=== PATIENT | male | born 1950 | race Caucasian/White ===

== ENCOUNTER 2016-12-29 08:34 | Day surgery (SDC) | payer OTHER ==
[2016-12-26 15:24] VITALS: BMI 30.7
[2016-12-29 09:04] VITALS: TEMP 97.4
[2016-12-29] MEDS ORDERED: LIDOCAINE 1%/EPI 1:100000 (20 ML MULTI DOSE VIAL) ONE (09:42)
[2016-12-29] MEDS ORDERED: TOBRAMYCIN/DEXAMETHASONE OPHTH. OINTMENT 1 TUBE ONE (09:42)
[2016-12-29] MEDS ORDERED: MIDAZOLAM HCL 2 MG/2 ML SINGLE DOSE VIAL ONE (09:56)
[2016-12-29] MEDS ORDERED: TETRACAINE 0.5% OPHTH SOLN 2 ML BOTTLE OS ONE (10:09)
[2016-12-29] MEDS ORDERED: LIDOCAINE 1%/EPI 1:100000 (50 ML MULTI DOSE VIAL) INF ONE (10:15)
[2016-12-29] MEDS ORDERED: NEO/POLYMYX B SULF/DEXAMETH OPHTHALMIC 5ML BOTTLE ONE (10:22)
[2016-12-29] MEDS ORDERED: NEO/POLYMYX B SULF/DEXAMETH OPHTHALMIC OINTMENT 3.5 GM ONE (10:23)
[2016-12-29 11:33] VITALS: PULSE 69
[2016-12-29 13:49] VITALS: BP 120/70
--- NOTE | 2016-12-30 08:41 | OP ---
DATE OF OPERATION: 12/29/2016 SPECIALIST: Britni Hurd MD PREOPERATIVE DIAGNOSIS: Warty growth of the left lower eyelid. POSTOPERATIVE DIAGNOSIS: Warty growth of the left lower eyelid. PROCEDURE: Excision of the lesion on the left lower eyelid under local anesthesia. DESCRIPTION OF PROCEDURE: The patient was brought to the operating room. After placing tetracaine eye drops, the external ocular adnexa was sterilized in the usual ophthalmic technique with using the Betadine. Microscope was swung into position, and the base of the wart was then excised using the 11-blade. Cautery was used to achieve hemostasis. Specimen was sent for biopsy, and Maxitrol eye ointment was placed on the base of the wound. The patient was transferred to recovery room in a stable condition having tolerated the procedure well. BRITNI HURD M.D. [id number]
--- NOTE | 2016-12-30 11:29 | PATH ---
Surgical Pathology Report Patient Name: ISAIAS BARNES [facility]. Rec. #: [id number] /Age/Gender: 1950 (Age: 66) / M Account: [id number] [facility] Taken: 12/29/2016 Received: 12/29/2016 Reported: 12/30/2016 Physicians: Raisa Luevano M.D. Specimen(s) Received WARTY GROWTH LEFT EYE LOWER LID Clinical History Warty growth of left eyelid Final Diagnosis SKIN, LEFT LOWER EYELID, BIOPSY: BENIGN SQUAMOUS PAPILLOMA. NO CARCINOMA IDENTIFIED. Electronically Signed Paul Carreon M.D. Gross Description Received in formalin labeled "left eye lower lid margin warty" is a 0.3 x 0.2 x 0.1 cm haskins, polypoid portion of skin. The specimen is submitted in toto in one cassette. /12/29/2016 saudi/12/29/2016
== END 2016-12-29 11:45 | disposition home or self-care (01) ==
LOC: JASU-SURG 08:34
PROVIDERS: ATTEND Ophthalmology
PROC: 0HB1XZZ Excision of Face Skin, External Approach (ICD-10-PCS; principal; 2016-12-29 10:00)
DX: D23.12 Other benign neoplasm of skin of left eyelid, including canthus (principal)
CPT/HCPCS: 88304-TC

== ENCOUNTER 2024-10-04 10:53 | Emergency (ER) | payer OTHER ==
[2024-10-04] MEDS ORDERED: KETOROLAC TROMETHAMINE 30 MG/1 ML VIAL ONE (11:46)
[2024-10-04] MEDS: KETOROLAC TROMETHAMINE 30 MG/1 ML VIAL IM ONE (11:53)
[2024-10-04 13:04] VITALS: BP 161/99; PULSE 95; RESP 20; TEMP 98; BMI 28.7
== END 2024-10-04 12:21 | disposition home or self-care (01) ==
LOC: JERFT 10:53
PROC: 3E0233Z Introduction of Anti-inflammatory into Muscle, Percutaneous Approach (ICD-10-PCS; principal; 2024-10-04)
DX: S46.912A Strain of unspecified muscle, fascia and tendon at shoulder and upper arm level, left arm, initial encounter (principal); X50.9XXA Other and unspecified overexertion or strenuous movements or postures, initial encounter
CPT/HCPCS: 96372; 99284-25